=== PATIENT | male | born 1945 | race Caucasian/White ===

== ENCOUNTER 2019-04-22 09:56 | Day surgery (SDC) | payer OTHER ==
[2019-04-21 15:39] VITALS: BMI 25.7
[2019-04-22 11:56] VITALS: TEMP 98
[2019-04-22 14:27] VITALS: BP 127/61; PULSE 56
--- NOTE | 2019-04-23 15:17 | PATH ---
Surgical Pathology Report Patient Name: SG COMER [facility]. Rec. #: [id number] /Age/Gender: 1945 (Age: 73) / M Account: [id number] Location: [facility]-ENDOSCOPY Taken: 04/22/2019 Received: 04/22/2019 Reported: 04/23/2019 Physicians: Korey Baker D.O. Specimen(s) Received A: PYLORUS B: ANTRAL EROSION C: ANGULARIS AND BODY D: BX GE JUNCTION Clinical History Abnormal PET scan Postoperative diagnosis: Esophagitis Final Diagnosis A. PYLORUS, BIOPSY: GASTRIC MUCOSA WITH CHRONIC GASTRITIS AND REACTIVE GASTROPATHY. IMMUNOSTAIN FOR H. PYLORI IS NEGATIVE. POSITIVE FOR INTESTINAL METAPLASIA. B. ANTRUM EROSION, BIOPSY: GASTRIC MUCOSA WITH CHRONIC GASTRITIS AND REACTIVE GASTROPATHY. IMMUNOSTAIN FOR H. PYLORI IS NEGATIVE. NEGATIVE FOR INTESTINAL METAPLASIA. C. ANGULARIS AND BODY, BIOPSY: GASTRIC MUCOSA WITH CHRONIC GASTRITIS. IMMUNOSTAIN FOR H. PYLORI IS NEGATIVE. NEGATIVE FOR INTESTINAL METAPLASIA. D. GE JUNCTION, BIOPSY: GASTROESOPHAGEAL JUNCTIONAL MUCOSA WITH INTESTINAL METAPLASIA AND HIGH GRADE DYSPLASIA. MULTIPLE SERIAL H&E LEVELS EXAMINED. Intradepartmental case reviewed with concordance on diagnosis. This case was discussed with Dr. Baker On April 23, 2019. Electronically Signed Yanelis Haines M.D. Gross Description A. Received in formalin, labeled "biopsy pylorus" are 3 asencio, irregular portions of soft tissue ranging from 0.2-0.3 cm. in greatest dimension. The specimens are submitted in toto in one cassette. B. Received in formalin, labeled "biopsy antral erosions" are 3 asencio, irregular portions of soft tissue averaging 0.3 cm. in greatest dimension. The specimens are submitted in toto in one cassette. C. Received in formalin, labeled "biopsy angularis and body" are 2 asencio, irregular portions of soft tissue averaging 0.3 cm. in greatest dimension. The specimens are submitted in toto in one cassette. D. Received in formalin, labeled "biopsy GE junction" are 6 asencio, irregular portions of soft tissue ranging from 0.2-0.4 cm. in greatest dimension. The specimens are submitted in toto in one cassette. 04/22/2019 [facility]04/22/2019
== END 2019-04-22 12:50 | disposition home or self-care (01) ==
LOC: JASU-ENDO 09:56
PROVIDERS: ATTEND Internal Medicine Gastroenterology
PROC: 0DB68ZX Excision of Stomach, Via Natural or Artificial Opening Endoscopic, Diagnostic (ICD-10-PCS; 2019-04-22)
PROC: 0DB48ZX Excision of Esophagogastric Junction, Via Natural or Artificial Opening Endoscopic, Diagnostic (ICD-10-PCS; principal; 2019-04-22 11:00)
DX: K25.9 Gastric ulcer, unspecified as acute or chronic, without hemorrhage or perforation (principal); K29.50 Unspecified chronic gastritis without bleeding; I10 Essential (primary) hypertension; E11.9 Type 2 diabetes mellitus without complications
CPT/HCPCS: 88305-TC; 88342-TC

== ENCOUNTER 2019-05-06 08:55 | Day surgery (SDC) | payer OTHER ==
[2019-05-05 15:57] VITALS: BMI 25.7
[2019-05-06 11:35] VITALS: TEMP 97.5
[2019-05-06 12:51] VITALS: BP 151/54; PULSE 56
--- NOTE | 2019-05-08 09:27 | PATH ---
Surgical Pathology Report Patient Name: SG COMER [facility]. Rec. #: [id number] /Age/Gender: 1945 (Age: 73) / M Account: [id number] Location: [facility]-ENDOSCOPY Taken: 05/06/2019 Received: 05/06/2019 Reported: 05/08/2019 Physicians: Korey Lord D.O. Specimen(s) Received A: APPENDICEAL ORIFICE BIOPSY B: RIGHT COLON MASS BIOPSY C: HEPATIC FLEXURE POLYP D: PROXIMAL TRANSVERSE COLON SUBMUCOSAL NODULE E: TRANSVERSE COLON POLYP F: DISTAL TRANSVERSE COLON POLYP Clinical History Screening Postoperative diagnosis: Prominent appendiceal orifice, colon polyps, diverticulosis Final Diagnosis A. APPENDICEAL ORIFICE, BIOPSY: COLONIC MUCOSA WITH PROMINENT LYMPHOID AGGREGATES. B. COLON, RIGHT, MASS, BIOPSY: TUBULAR ADENOMA. NO HIGH GRADE DYSPLASIA IDENTIFIED. DEEPER LEVELS HAVE BEEN EXAMINED. C. COLON, HEPATIC FLEXURE, POLYP, POLYPECTOMY: TUBULAR ADENOMA. D. PROXIMAL TRANSVERSE, SUBMUCOSAL NODULE, BIOPSY: SCANT MATURE FIBROADIPOSE TISSUE WITH OVERLYING COLONIC MUCOSA SUGGESTIVE OF MUCOSAL LIPOMA. E. TRANSVERSE COLON, POLYP, POLYPECTOMY: TUBULAR ADENOMA. F. DISTAL TRANSVERSE COLON, POLYP, POLYPECTOMY: TUBULAR ADENOMA. Electronically Signed Natali Peoples M.D. Gross Description A. Received in formalin, labeled "appendiceal orifice biopsy" are 2 asencio, irregular portions of soft tissue averaging 0.3 cm. in greatest dimension. The specimens are submitted in toto in one cassette. B. Received in formalin labeled "right colon mass biopsy," is a 0.8 x 0.6 x 0.2 cm aggregate of asencio soft tissue fragments. The formalin is filtered and the specimen is entirely submitted in one cassette. C. Received in formalin, labeled "hepatic flexure polyp" are 6 asencio, irregular portions of soft tissue ranging from 0.1-0.5 cm. in greatest dimension. The specimens are submitted in toto in one cassette. D. Received in formalin, labeled "proximal transverse submucosal nodule" are 2 asencio, irregular portions of soft tissue measuring 0.3 and 0.5 cm. in greatest dimension. The specimens are submitted in toto in one cassette. E. Received in formalin, labeled "transverse colon polyp" are 3 asencio, irregular portions of soft tissue ranging from 0.1-0.5 cm. in greatest dimension. The specimens are submitted in toto in one cassette. F. Received in formalin, labeled "distal transverse colon polyp" is a asencio, irregular portion of soft tissue measuring 0.4 cm. in greatest dimension. The specimen is submitted in toto in one cassette. 05/06/2019 [facility]05/06/2019
== END 2019-05-06 12:50 | disposition home or self-care (01) ==
LOC: JASU-ENDO 08:55
PROVIDERS: ATTEND Internal Medicine Gastroenterology
PROC: 0DBF8ZX Excision of Right Large Intestine, Via Natural or Artificial Opening Endoscopic, Diagnostic (ICD-10-PCS; 2019-05-06)
PROC: 0DBE8ZX Excision of Large Intestine, Via Natural or Artificial Opening Endoscopic, Diagnostic (ICD-10-PCS; 2019-05-06)
PROC: 3E0H8GC Introduction of Other Therapeutic Substance into Lower GI, Via Natural or Artificial Opening Endoscopic (ICD-10-PCS; 2019-05-06)
PROC: 0DBL8ZX Excision of Transverse Colon, Via Natural or Artificial Opening Endoscopic, Diagnostic (ICD-10-PCS; principal; 2019-05-06 09:45)
DX: Z12.11 Encounter for screening for malignant neoplasm of colon (principal); K57.30 Diverticulosis of large intestine without perforation or abscess without bleeding; D12.3 Benign neoplasm of transverse colon; K64.8 Other hemorrhoids; D17.79 Benign lipomatous neoplasm of other sites; I10 Essential (primary) hypertension; E11.9 Type 2 diabetes mellitus without complications
CPT/HCPCS: 88305-TC